=== PATIENT | female | born 1935 | race Caucasian/White ===

== ENCOUNTER 2016-12-26 19:17 | Emergency (ER) | payer MEDICARE ==
[2016-12-26 21:58] LABS: HEMOGLOBIN 12.2 gm/dl (12.3-15.3); RED BLOOD COUNT 4.46 M/UL (4.00-5.10); WHITE BLOOD COUNT 8.1 K/UL (4.5-11.0)
[2016-12-26 22:18] LABS: BUN/CREATININE RATIO 26 (0-10)
== END 2016-12-27 00:20 | disposition home or self-care (01) ==
LOC: ER1 19:17
PROVIDERS: Emergency Medicine
DX: M54.2 Cervicalgia (principal); J18.9 Pneumonia, unspecified organism; J44.9 Chronic obstructive pulmonary disease, unspecified; F17.200 Nicotine dependence, unspecified, uncomplicated; M54.12 Radiculopathy, cervical region
CPT/HCPCS: 36415; 71020; 72125; 80053; 83690; 84484; 85025; 85610; 85730; 93005; 99284

== ENCOUNTER 2021-02-02 18:22 | Inpatient (IN) | payer MEDICARE, MEDICAID ==
[~2021-02-02] VITALS: Ht 162.6 cm; Wt 51.3 kg
[2021-02-02 19:13] LABS: HEMOGLOBIN 12.3 gm/dl (12.3-15.3); RED BLOOD COUNT 4.4 M/UL (4.00-5.10); WHITE BLOOD COUNT 26.5 K/UL (4.5-11.0)
[2021-02-02 19:38] LABS: BUN/CREATININE RATIO 27 (0-10)
[2021-02-03] MEDS ORDERED: VENTOLIN HFA 66.7 GM INH ×2 (00:46→00:47)
[2021-02-03 03:09] LABS: HEMOGLOBIN 10.9 gm/dl (12.3-15.3); RED BLOOD COUNT 3.97 M/UL (4.00-5.10); WHITE BLOOD COUNT 16.8 K/UL (4.5-11.0)
[2021-02-03 03:48] LABS: BUN/CREATININE RATIO 27 (0-10)
[2021-02-04 04:53] LABS: HEMOGLOBIN 9.3 gm/dl (12.3-15.3)
[2021-02-04 05:01] LABS: RED BLOOD COUNT 3.46 M/UL (4.00-5.10)
[2021-02-04 05:05] LABS: BUN/CREATININE RATIO 21 (0-10)
[2021-02-05 03:01] LABS: RED BLOOD COUNT 3.3 M/UL (4.00-5.10); WHITE BLOOD COUNT 11.9 K/UL (4.5-11.0)
[2021-02-05 03:29] LABS: BUN/CREATININE RATIO 21 (0-10)
[2021-02-06 04:56] LABS: HEMOGLOBIN 8.9 gm/dl (12.3-15.3); RED BLOOD COUNT 3.25 M/UL (4.00-5.10)
[2021-02-06 05:00] LABS: WHITE BLOOD COUNT 8.7 K/UL (4.5-11.0)
[2021-02-06 05:20] LABS: BUN/CREATININE RATIO 19 (0-10)
[2021-02-07 02:44] LABS: HEMOGLOBIN 8.9 gm/dl (12.3-15.3); RED BLOOD COUNT 3.19 M/UL (4.00-5.10); WHITE BLOOD COUNT 9.4 K/UL (4.5-11.0)
[2021-02-07 03:09] LABS: BUN/CREATININE RATIO 25 (0-10)
[2021-02-08 04:17] LABS: HEMOGLOBIN 8.4 gm/dl (12.3-15.3); RED BLOOD COUNT 3.04 M/UL (4.00-5.10)
[2021-02-08 04:19] LABS: WHITE BLOOD COUNT 5.7 K/UL (4.5-11.0)
[2021-02-08 04:43] LABS: BUN/CREATININE RATIO 18 (0-10)
[2021-02-08] MEDS ORDERED: IPRAT-ALBUT 0.5-3 ML NEB (09:38)
[2021-02-08] MEDS ORDERED: AUGMENTIN 875-1 EACH PO (09:38)
[2021-02-08] MEDS ORDERED: ASPIRIN EC81 MG PO (09:38)
[2021-02-08] MEDS ORDERED: NEBULIZER UNIT INH (10:41)
--- NOTE | 2021-02-08 10:44 | NUR ---
INSTRUCTED PATIENT ON NEB TREATMENTS, MEDS AND NEB MACHINE E-SCRIPTED TO PHARMACY. TAKE ALL MEDS UNTIL COMPLETED. PROPER TECHNIQUE FOR SLING MAINTENANCE TO PREVENT ARM SWELLING. REFUSED HOME HEALTH. JELANI WILLARD SPEAKING WITH SON TO EXPLAIN MOTHERS DECISION. TO VERIFY UNDERSTANDING. LIVE DAILEY R.N.
== END 2021-02-08 14:20 | disposition home health service (06) | DRG 177 ==
LOC: ER1 18:22 → M/S 21:30 → CDU 21:30 → M/S 22:35
PROVIDERS: Internal Medicine; Physician Assistant; Preventive Medicine Occupational Medicine; ADMIT Internal Medicine
DX: J69.0 Pneumonitis due to inhalation of food and vomit (principal); G93.41 Metabolic encephalopathy; J96.01 Acute respiratory failure with hypoxia; S42.201A Unspecified fracture of upper end of right humerus, initial encounter for closed fracture; J44.0 Chronic obstructive pulmonary disease with (acute) lower respiratory infection; E11.65 Type 2 diabetes mellitus with hyperglycemia; Z20.822 Contact with and (suspected) exposure to COVID-19; E86.0 Dehydration; W19.XXXA Unspecified fall, initial encounter; D72.819 Decreased white blood cell count, unspecified; Z79.899 Other long term (current) drug therapy; Z79.82 Long term (current) use of aspirin; Z87.891 Personal history of nicotine dependence
CPT/HCPCS: ECHO; 0240U; 36415; 36600; 51702; 70450; 70486; 70490; 71045; 73060; 80048; 80053; 80307; 81001; 82009; 82140; 82550; 82553; 82803; 82962; 83036; 83605; 83690; 83874; 83880; 84484; 85025; 85610; 85652; 85730; 86140; 87040; 87086; 92610; 93005; 93306; 94640; 94664; 94760; 96374; 96375; 97116; 97116-GP-CQ; 97161; 99285; A6212; G0480; J0696; J1650; J2543; J7030

== ENCOUNTER → 2021-02-15 | Outpatient (CLI) | payer MEDICARE ==
[~2021-02-15] MED LIST: ASPIRIN EC81 MG PO; AUGMENTIN 875-1 EACH PO; IPRAT-ALBUT 0.5-3 ML NEB; NEBULIZER UNIT INH; VENTOLIN HFA 66.7 GM INH
[2021-02-15 18:31] LABS: HEMOGLOBIN 10.5 gm/dl (12.3-15.3); RED BLOOD COUNT 3.87 M/UL (4.00-5.10); WHITE BLOOD COUNT 11.9 K/UL (4.5-11.0)
[2021-02-15 19:28] LABS: BUN/CREATININE RATIO 37 (0-10)
== END ==
LOC: LAB 17:18
PROVIDERS: Nurse Practitioner Family
DX: J43.9 Emphysema, unspecified (principal); D64.9 Anemia, unspecified; R91.8 Other nonspecific abnormal finding of lung field
CPT/HCPCS: 71046; 80053; 82272; 82728; 83540; 83550; 83615; 84466; 85025; 85045

== ENCOUNTER 2021-05-13 15:42 | Inpatient (IN) | payer MEDICARE, MEDICAID ==
[~2021-05-13] VITALS: Ht 152.4 cm; Wt 54.4 kg
[2021-05-13 16:31] LABS: BUN/CREATININE RATIO 25 (0-10)
[2021-05-13 16:39] LABS: HEMOGLOBIN 13.1 gm/dl (12.3-15.3); RED BLOOD COUNT 4.92 M/UL (4.00-5.10); WHITE BLOOD COUNT 13.9 K/UL (4.5-11.0)
[2021-05-14 03:31] LABS: HEMOGLOBIN 12.8 gm/dl (12.3-15.3); RED BLOOD COUNT 4.73 M/UL (4.00-5.10); WHITE BLOOD COUNT 9.4 K/UL (4.5-11.0)
[2021-05-14 03:54] LABS: BUN/CREATININE RATIO 25 (0-10)
[2021-05-15 08:57] LABS: HEMOGLOBIN 12.1 gm/dl (12.3-15.3); RED BLOOD COUNT 4.56 M/UL (4.00-5.10); WHITE BLOOD COUNT 9.8 K/UL (4.5-11.0)
[2021-05-15 09:10] LABS: BUN/CREATININE RATIO 30 (0-10)
[2021-05-16 06:52] LABS: HEMOGLOBIN 12.1 gm/dl (12.3-15.3); RED BLOOD COUNT 4.56 M/UL (4.00-5.10)
[2021-05-16 07:01] LABS: WHITE BLOOD COUNT 4.6 K/UL (4.5-11.0)
[2021-05-16 07:11] LABS: BUN/CREATININE RATIO 29 (0-10)
[2021-05-17 10:05] LABS: HEMOGLOBIN 12.2 gm/dl (12.3-15.3); RED BLOOD COUNT 4.59 M/UL (4.00-5.10); WHITE BLOOD COUNT 5.6 K/UL (4.5-11.0)
[2021-05-17 10:24] LABS: BUN/CREATININE RATIO 33 (0-10)
[2021-05-19 02:48] LABS: HEMOGLOBIN 12.7 gm/dl (12.3-15.3); RED BLOOD COUNT 4.62 M/UL (4.00-5.10); WHITE BLOOD COUNT 6.7 K/UL (4.5-11.0)
[2021-05-19 03:29] LABS: BUN/CREATININE RATIO 30 (0-10)
[2021-05-22 06:42] LABS: HEMOGLOBIN 12.3 gm/dl (12.3-15.3); RED BLOOD COUNT 4.52 M/UL (4.00-5.10); WHITE BLOOD COUNT 6.9 K/UL (4.5-11.0)
[2021-05-22 07:00] LABS: BUN/CREATININE RATIO 23 (0-10)
[2021-05-22] MEDS ORDERED: SYMBICORT 160-1 INHA INH (14:03)
[2021-05-22] MEDS ORDERED: THERAGRAN M TAB1 EA PO (14:03)
[2021-05-22] MEDS ORDERED: NORVASC5 MG PO (14:03)
[2021-05-22] MEDS ORDERED: LOPRESSOR 25 MG25 MG PO (14:14)
--- NOTE | 2021-05-22 16:08 | NUR ---
Patient O2 saturation dropped to low and mid 80's prior to discharge. Assessment revealed that her 02 cannula and cords were improperly placed. After evaluation with pulse ox, after 02 was placed correctly and adjusted to the approrpriate 3L, the patient's O2 Sat returned to the mid 90's. Discharge then proceeded as normal. Dr. Espino was made aware.
== END 2021-05-22 16:28 | disposition home health service (06) | DRG 177 ==
LOC: ER1 15:42 → MED SURG 4 17:48 → CDU 17:48 → MED SURG 4 05-15 01:00
PROVIDERS: Internal Medicine Infectious Disease; Physician Assistant; ADMIT Internal Medicine
PROC: XW033E5 Introduction of Remdesivir Anti-infective into Peripheral Vein, Percutaneous Approach, New Technology Group 5 (ICD-10-PCS; principal; 2021-05-13)
PROC: 3E0333Z Introduction of Anti-inflammatory into Peripheral Vein, Percutaneous Approach (ICD-10-PCS; 2021-05-13)
PROC: 8E0ZXY6 Isolation (ICD-10-PCS; 2021-05-14)
DX: U07.1 COVID-19 (principal); J12.82 Pneumonia due to coronavirus disease 2019; J96.01 Acute respiratory failure with hypoxia; J44.1 Chronic obstructive pulmonary disease with (acute) exacerbation; J44.0 Chronic obstructive pulmonary disease with (acute) lower respiratory infection; F03.90 Unspecified dementia, unspecified severity, without behavioral disturbance, psychotic disturbance, mood disturbance, and anxiety; I16.0 Hypertensive urgency; E87.6 Hypokalemia; R53.81 Other malaise; Z99.81 Dependence on supplemental oxygen; Z87.891 Personal history of nicotine dependence
CPT/HCPCS: 36415; 36600; 71045; 80048; 80053; 82550; 82553; 82803; 83735; 83874; 83880; 84484; 85025; 86140; 93005; 94640; 94664; 94760; 96374; 96375; 97110-GP-CQ; 97116-GP-CQ; 97162; 97166; 99285; A6212; J0456; J0696; J1100; J1650; J7030; U0002

== ENCOUNTER 2021-07-08 13:12 | Inpatient (IN) | payer MEDICARE, MEDICAID ==
[~2021-07-08] VITALS: Ht 160 cm; Wt 39.0 kg
[~2021-07-08 13:12] MED LIST changes: +LOPRESSOR 25 MG25 MG PO; +NORVASC5 MG PO; +PROAIR DIGIHAL90 MCG INH; +SYMBICORT 160-1 INHA INH; +THERAGRAN M TAB1 EA PO
[2021-07-08 14:18] LABS: RED BLOOD COUNT 3.83 M/UL (4.00-5.10); WHITE BLOOD COUNT 12.5 K/UL (4.5-11.0)
[2021-07-08 14:50] LABS: BUN/CREATININE RATIO 32 (0-10)
[2021-07-08] MEDS ORDERED: DAILY VALUE1 EACH PO (18:26)
[2021-07-08] MEDS ORDERED: TRELEGY ELLIPT1 EACH INH (18:28)
[2021-07-09 08:04] LABS: RED BLOOD COUNT 3.69 M/UL (4.00-5.10); WHITE BLOOD COUNT 9.5 K/UL (4.5-11.0)
[2021-07-09 08:30] LABS: BUN/CREATININE RATIO 17 (0-10)
[2021-07-09 12:46] LABS: HEMOGLOBIN 10.4 gm/dl (12.3-15.3); RED BLOOD COUNT 3.71 M/UL (4.00-5.10)
[2021-07-09 12:53] LABS: BUN/CREATININE RATIO 22 (0-10)
--- NOTE | 2021-07-10 16:27 | NUR ---
Spoke with patient concerning PICC line placement. Pt refusing at this time. Pt states that she wants to speak to her son about the PICC. BUNNY Nolasco updated on conversation with pt. Will f/u on 07/11/21.
--- NOTE | 2021-07-11 04:05 | NUR ---
0340 CHANGED PATIENTS DRESSING, APPLIED NEW ALLEVYN DRESSINGS TO HER MID THORACIC AREA AND COCCYX. PATIENT TOLERATED WELL.
[2021-07-11 06:44] LABS: HEMOGLOBIN 9.1 gm/dl (12.3-15.3)
[2021-07-11 06:48] LABS: RED BLOOD COUNT 3.27 M/UL (4.00-5.10); WHITE BLOOD COUNT 7.4 K/UL (4.5-11.0)
[2021-07-11 07:12] LABS: BUN/CREATININE RATIO 13 (0-10)
--- NOTE | 2021-07-13 16:31 | NUR ---
20G X 10CM MIDLINE PLACED IN THE RIGHT BASILIC VEIN, USING US GUIDANCE. ASPIRATES AND FLUSHES.
--- NOTE | 2021-07-13 17:19 | NUR ---
PATIENT HAD A MIDLINE PLACED IN RIGHT BACILLUS. 20 GAUGE X 10CM.
[2021-07-14 06:53] LABS: HEMOGLOBIN 9.1 gm/dl (12.3-15.3); RED BLOOD COUNT 3.26 M/UL (4.00-5.10); WHITE BLOOD COUNT 6.4 K/UL (4.5-11.0)
[2021-07-14 07:34] LABS: BUN/CREATININE RATIO 16 (0-10)
[2021-07-14] MEDS ORDERED: NORVASC10 MG PO (09:24)
[2021-07-14] MEDS ORDERED: INVANZ 1 GM VIAL1 GM IV (09:24)
== END 2021-07-14 17:54 | disposition home health service (06) | DRG 539 ==
LOC: ER1 13:12 → M/S 16:21 → CDU 16:21 → M/S 17:28
PROVIDERS: Internal Medicine Infectious Disease; Physician Assistant; ADMIT Internal Medicine
DX: M46.28 Osteomyelitis of vertebra, sacral and sacrococcygeal region (principal); L89.154 Pressure ulcer of sacral region, stage 4; E43 Unspecified severe protein-calorie malnutrition; J96.11 Chronic respiratory failure with hypoxia; Z68.1 Body mass index [BMI] 19.9 or less, adult; R64 Cachexia; L03.818 Cellulitis of other sites; R53.83 Other fatigue; L89.102 Pressure ulcer of unspecified part of back, stage 2; J44.9 Chronic obstructive pulmonary disease, unspecified; I10 Essential (primary) hypertension; Z86.16 Personal history of COVID-19; Z79.899 Other long term (current) drug therapy; Z79.52 Long term (current) use of systemic steroids; Z87.891 Personal history of nicotine dependence
CPT/HCPCS: 36415; 71045; 72192; 80048; 80053; 80202; 81001; 82550; 82553; 83605; 83874; 84484; 85025; 85652; 86140; 87040; 87070; 87077; 87086; 87186; 87205; 94640; 94664; 94760; 96374; 96375; 97110-GP-CQ; 97116-GP-CQ; 97161; 97530; 99284; A6212; C1751; J1335; J1650; J1756; J2543; J3370; J7050; U0002

== ENCOUNTER → 2021-07-15 | Outpatient (CLI) | payer MEDICARE ==
[~2021-07-15] VITALS: Ht 162.6 cm; Wt 39.0 kg
[~2021-07-15] MED LIST changes: +DAILY VALUE1 EACH PO; +INVANZ 1 GM VIAL1 GM IV; +NORVASC10 MG PO; +TRELEGY ELLIPT1 EACH INH
== END ==
LOC: LAB 06:57
DX: M86.9 Osteomyelitis, unspecified (principal)
CPT/HCPCS: 96365; J1335

== ENCOUNTER → 2021-07-16 | Outpatient (CLI) | payer MEDICARE ==
[~2021-07-16] VITALS: Ht 162.6 cm; Wt 86.0 kg
== END ==
LOC: OPSV 06:40
DX: M86.9 Osteomyelitis, unspecified (principal)
CPT/HCPCS: 96365; J1335

== ENCOUNTER → 2021-07-17 | Outpatient (CLI) | payer MEDICARE | LOC: OPSV 07:00 | DX: M86.9 Osteomyelitis, unspecified (principal) | CPT/HCPCS: 96365; J1335 ==

== ENCOUNTER → 2021-07-18 | Outpatient (CLI) | payer MEDICARE ==
[~2021-07-18] VITALS: Ht 152.4 cm; Wt 55.8 kg
== END ==
LOC: OPSV 09:00
DX: M86.9 Osteomyelitis, unspecified (principal)
CPT/HCPCS: 96365; J1335

== ENCOUNTER → 2021-07-19 | Outpatient (CLI) | payer MEDICARE | LOC: OPSV 08:53 | DX: M86.9 Osteomyelitis, unspecified (principal) | CPT/HCPCS: 96365; J1335 ==

== ENCOUNTER → 2021-07-20 | Outpatient (CLI) | payer MEDICARE ==
[~2021-07-20] VITALS: Ht 162.6 cm; Wt 39.0 kg
== END ==
LOC: OPSV 08:32
DX: M86.9 Osteomyelitis, unspecified (principal)
CPT/HCPCS: 96365; J1335

== ENCOUNTER → 2021-07-21 | Outpatient (CLI) | payer MEDICARE ==
[~2021-07-21] VITALS: Ht 162.6 cm; Wt 39.0 kg
== END ==
LOC: OPSV 08:25
DX: M86.9 Osteomyelitis, unspecified (principal)
CPT/HCPCS: 96365; J1335

== ENCOUNTER → 2021-07-22 | Outpatient (CLI) | payer MEDICARE | LOC: OPSV 06:33 | DX: M86.9 Osteomyelitis, unspecified (principal) | CPT/HCPCS: 96365; J1335 ==

== ENCOUNTER → 2021-07-23 | Outpatient (CLI) | payer MEDICARE | LOC: OPSV 06:40 | DX: M86.9 Osteomyelitis, unspecified (principal) | CPT/HCPCS: 96365; J1335 ==

== ENCOUNTER → 2021-07-24 | Outpatient (CLI) | payer MEDICARE ==
[~2021-07-24] VITALS: Ht 162.6 cm; Wt 39.0 kg
== END ==
LOC: OPSV 08:43
DX: M86.9 Osteomyelitis, unspecified (principal)
CPT/HCPCS: 96365; J1335

== ENCOUNTER → 2021-07-25 | Outpatient (CLI) | payer MEDICARE ==
[~2021-07-25] VITALS: Ht 162.6 cm; Wt 39.0 kg
== END ==
LOC: OPSV 08:16
DX: M86.9 Osteomyelitis, unspecified (principal)
CPT/HCPCS: 96365; J1335

== ENCOUNTER → 2021-07-26 | Outpatient (CLI) | payer MEDICARE ==
[~2021-07-26] VITALS: Ht 162.6 cm; Wt 39.0 kg
== END ==
LOC: OPSV 08:18
DX: M86.9 Osteomyelitis, unspecified (principal)
CPT/HCPCS: 96365; J1335

== ENCOUNTER → 2021-07-27 | Outpatient (CLI) | payer MEDICARE ==
[~2021-07-27] VITALS: Ht 162.6 cm; Wt 39.0 kg
== END ==
LOC: OPSV 06:36
DX: M86.9 Osteomyelitis, unspecified (principal)
CPT/HCPCS: 96365; J1335

== ENCOUNTER → 2021-07-28 | Outpatient (CLI) | payer MEDICARE ==
[~2021-07-28] VITALS: Ht 162.6 cm; Wt 39.0 kg
== END ==
LOC: OPSV 06:34
DX: M86.9 Osteomyelitis, unspecified (principal)
CPT/HCPCS: 96365; J1335

== ENCOUNTER → 2021-07-29 | Outpatient (CLI) | payer MEDICARE ==
[~2021-07-29] VITALS: Ht 162.6 cm; Wt 39.0 kg
== END ==
LOC: OPSV 06:35
DX: M86.9 Osteomyelitis, unspecified (principal)
CPT/HCPCS: 96365; J1335

== ENCOUNTER → 2021-07-30 | Outpatient (CLI) | payer MEDICARE | LOC: OPSV 06:36 | DX: M86.9 Osteomyelitis, unspecified (principal) | CPT/HCPCS: 96365; J1335 ==

== ENCOUNTER → 2021-07-31 | Outpatient (CLI) | payer MEDICARE ==
[~2021-07-31] VITALS: Ht 162.6 cm; Wt 39.0 kg
== END ==
LOC: OPSV 08:36
DX: M86.9 Osteomyelitis, unspecified (principal)
CPT/HCPCS: 96365; J1335

== ENCOUNTER → 2021-08-01 | Outpatient (CLI) | payer MEDICARE ==
[~2021-08-01] VITALS: Ht 162.6 cm; Wt 39.0 kg
== END ==
LOC: OPSV 06:33
DX: M86.9 Osteomyelitis, unspecified (principal)
CPT/HCPCS: 96365; J1335

== ENCOUNTER → 2021-08-02 | Outpatient (CLI) | payer MEDICARE ==
[~2021-08-02] VITALS: Ht 162.6 cm; Wt 39.0 kg
== END ==
LOC: OPSV 08:14
DX: M86.9 Osteomyelitis, unspecified (principal)
CPT/HCPCS: 96365; J1335

== ENCOUNTER → 2021-08-03 | Outpatient (CLI) | payer MEDICARE ==
[~2021-08-03] VITALS: Ht 162.6 cm; Wt 86.0 kg
== END ==
LOC: OPSV 08:31
DX: M86.9 Osteomyelitis, unspecified (principal)
CPT/HCPCS: 96365; J1335

== ENCOUNTER → 2021-08-04 | Outpatient (CLI) | payer MEDICARE ==
[~2021-08-04] VITALS: Ht 162.6 cm; Wt 39.0 kg
== END ==
LOC: OPSV 08:30
DX: M86.9 Osteomyelitis, unspecified (principal)
CPT/HCPCS: 96365; J1335

== ENCOUNTER 2022-03-20 10:15 | Inpatient (IN) | payer MEDICARE ==
[~2022-03-20] VITALS: Ht 167.6 cm; Wt 46.3 kg
[2022-03-20 10:42] LABS: HEMOGLOBIN 9.7 gm/dl (12.3-15.3); RED BLOOD COUNT 3.44 M/UL (4.00-5.10); WHITE BLOOD COUNT 5.5 K/UL (4.5-11.0)
[2022-03-20 11:01] LABS: BUN/CREATININE RATIO 38 (0-10)
[2022-03-20] MEDS ORDERED: ERYTHROMYCIN O3.5 GM OS (16:40)
[2022-03-20] MEDS ORDERED: IBU800 MG PO (16:42)
[2022-03-20] MEDS ORDERED: AMLODIPINE BESYL5 MG PO (16:44)
[2022-03-20] MEDS ORDERED: CLONIDINE HCL0.1 MG PO (16:46)
[2022-03-20] MEDS ORDERED: METOPROLOL TART25 MG PO (16:46)
[2022-03-20] MEDS ORDERED: ALBUTEROL2.5 MG/3 M INH (16:51)
[2022-03-21 02:32] LABS: HEMOGLOBIN 9.4 gm/dl (12.3-15.3); RED BLOOD COUNT 3.41 M/UL (4.00-5.10); WHITE BLOOD COUNT 5.1 K/UL (4.5-11.0)
[2022-03-21 04:16] LABS: BUN/CREATININE RATIO 29 (0-10)
--- NOTE | 2022-03-21 18:35 | NUR ---
SPOKE TO PT'S SON TODAY WHO HELPS IN HER CARE AT HOME. PT'S SON REPORTS THAT THE PT WEARS OXYGEN AT HOME 2-3L NC BUT CAN GO WITHOUT OXYGEN GENERALLY TO THE DOCTOR WITHOUT ANY PROBLEMS. PT STARTED GETTING MORE SOA A COUPLE OF WEEKS AGO BEFORE HE NOTICED THAT SHE WAS GETTING MORE SOA. WILL CONTINUE TO MONITOR PT AND HER OXYGEN.
--- NOTE | 2022-03-21 18:43 | NUR ---
ADVISED PT THAT THE MEDICATION REMDESIVIR THAT IS USED FOR COVID IS CONSIDERED EXPERIMENTAL AND NO USP SIDE EFFECTS ARE KNOWN AT THIS TIME. THIS MEDICATION IS EMERGENCY USE. PT STATED THAT SHE WOULD LIKE THE MEDICATION BECAUSE THIS IS WHAT HER DOCTOR ORDERED AND WILL TAKE THE MEDICATION. MEDICATION ADMINISTERED FOR THE PT.
[2022-03-22 04:21] LABS: HEMOGLOBIN 9.9 gm/dl (12.3-15.3); RED BLOOD COUNT 3.54 M/UL (4.00-5.10)
[2022-03-22 04:31] LABS: WHITE BLOOD COUNT 8.1 K/UL (4.5-11.0)
[2022-03-22 04:54] LABS: BUN/CREATININE RATIO 38 (0-10)
[2022-03-23 04:19] LABS: HEMOGLOBIN 9.9 gm/dl (12.3-15.3); RED BLOOD COUNT 3.48 M/UL (4.00-5.10); WHITE BLOOD COUNT 7.5 K/UL (4.5-11.0)
[2022-03-23 05:37] LABS: BUN/CREATININE RATIO 53 (0-10)
[2022-03-23 13:14] LABS: ORGANISM ID Not indicated. (.); SPECIMEN SOURCE Urine (.); STREPTOCOCCUS PNEUMONIAE AG Negative (Negative)
[2022-03-24 03:18] LABS: BUN/CREATININE RATIO 48 (0-10)
[2022-03-24 03:43] LABS: HEMOGLOBIN 9.6 gm/dl (12.3-15.3); RED BLOOD COUNT 3.4 M/UL (4.00-5.10); WHITE BLOOD COUNT 5.9 K/UL (4.5-11.0)
[2022-03-25 05:24] LABS: HEMOGLOBIN 10.7 gm/dl (12.3-15.3); WHITE BLOOD COUNT 5.6 K/UL (4.5-11.0)
[2022-03-25 05:26] LABS: RED BLOOD COUNT 3.8 M/UL (4.00-5.10)
[2022-03-25 05:50] LABS: BUN/CREATININE RATIO 60 (0-10)
[2022-03-26 04:49] LABS: BUN/CREATININE RATIO 65 (0-10)
[2022-03-26 05:14] LABS: HEMOGLOBIN 11.5 gm/dl (12.3-15.3); RED BLOOD COUNT 4.1 M/UL (4.00-5.10); WHITE BLOOD COUNT 5.1 K/UL (4.5-11.0)
[2022-03-27 03:39] LABS: HEMOGLOBIN 11.2 gm/dl (12.3-15.3); RED BLOOD COUNT 4.03 M/UL (4.00-5.10); WHITE BLOOD COUNT 5.9 K/UL (4.5-11.0)
[2022-03-27 04:28] LABS: BUN/CREATININE RATIO 65 (0-10)
[2022-03-28 03:23] LABS: HEMOGLOBIN 11.4 gm/dl (12.3-15.3); RED BLOOD COUNT 4.1 M/UL (4.00-5.10)
[2022-03-28 03:26] LABS: WHITE BLOOD COUNT 4.4 K/UL (4.5-11.0)
[2022-03-28 03:42] LABS: BUN/CREATININE RATIO 73 (0-10)
[2022-03-29 06:21] LABS: HEMOGLOBIN 12.2 gm/dl (12.3-15.3)
[2022-03-29 06:37] LABS: BUN/CREATININE RATIO 86 (0-10)
[2022-03-29 06:45] LABS: RED BLOOD COUNT 4.55 M/UL (4.00-5.10); WHITE BLOOD COUNT 5.7 K/UL (4.5-11.0)
[2022-03-29] MEDS ORDERED: LOSARTAN POTAS100 MG PO (13:16)
[2022-03-29] MEDS ORDERED: COREG25 MG PO (13:16)
[2022-03-29] MEDS ORDERED: ASPIRIN EC81 MG PO (13:16)
[2022-03-29] MEDS ORDERED: MEROPENEM1 GM IV (13:16)
--- NOTE | 2022-03-29 15:28 | NUR ---
REPORT CALLED TO [facility].
== END 2022-03-29 17:15 | disposition home health service (06) | DRG 177 ==
LOC: ER1 10:15 → CDU 14:44 → M/S 16:10
PROVIDERS: Emergency Medicine; Internal Medicine; ADMIT Internal Medicine
PROC: 8E0ZXY6 Isolation (ICD-10-PCS; principal; 2022-03-20)
PROC: XW033E5 Introduction of Remdesivir Anti-infective into Peripheral Vein, Percutaneous Approach, New Technology Group 5 (ICD-10-PCS; 2022-03-20)
PROC: 3E0333Z Introduction of Anti-inflammatory into Peripheral Vein, Percutaneous Approach (ICD-10-PCS; 2022-03-26)
DX: U07.1 COVID-19 (principal); J12.82 Pneumonia due to coronavirus disease 2019; L89.324 Pressure ulcer of left buttock, stage 4; L89.314 Pressure ulcer of right buttock, stage 4; J15.1 Pneumonia due to Pseudomonas; J80 Acute respiratory distress syndrome; J44.0 Chronic obstructive pulmonary disease with (acute) lower respiratory infection; E87.1 Hypo-osmolality and hyponatremia; Z68.1 Body mass index [BMI] 19.9 or less, adult; J91.8 Pleural effusion in other conditions classified elsewhere; R63.6 Underweight; R53.81 Other malaise; D50.9 Iron deficiency anemia, unspecified; I10 Essential (primary) hypertension; D69.6 Thrombocytopenia, unspecified; Z74.01 Bed confinement status; Z99.81 Dependence on supplemental oxygen; Z79.01 Long term (current) use of anticoagulants; Z79.82 Long term (current) use of aspirin; Z88.8 Allergy status to other drugs, medicaments and biological substances; Z87.01 Personal history of pneumonia (recurrent); Z82.49 Family history of ischemic heart disease and other diseases of the circulatory system
CPT/HCPCS: 36415; 36600; 70450; 71045; 71250; 80048; 80053; 80202; 81001; 82550; 82553; 82803; 82962; 83036; 83540; 83550; 83605; 83735; 83880; 84100; 84484; 85025; 85027; 85610; 85652; 85730; 86140; 87040; 87070; 87077; 87081; 87086; 87186; 87205; 87278; 87899; 93005; 94640; 94664; 94667; 94668; 94760; 97161; 97530; 97530-GP-CQ; 99285; A6212; C1751; J0248; J1100; J1650; J2185; J2543; J3370; J7030; J7070; U0002

== ENCOUNTER 2022-04-10 04:00 | Inpatient (IN) | payer MEDICARE ==
[~2022-04-10] VITALS: Ht 167.6 cm; Wt 55.5 kg
[~2022-04-10 04:00] MED LIST changes: +ALBUTEROL2.5 MG/3 M INH; +AMLODIPINE BESYL5 MG PO; +CLONIDINE HCL0.1 MG PO; +COREG25 MG PO; +ERYTHROMYCIN O3.5 GM OS; +IBU800 MG PO; +LOSARTAN POTAS100 MG PO; +MEROPENEM1 GM IV; +METOPROLOL TART25 MG PO
[2022-04-10 04:45] LABS: HEMOGLOBIN 7.4 gm/dl (12.3-15.3); RED BLOOD COUNT 2.62 M/UL (4.00-5.10)
[2022-04-10 05:12] LABS: BUN/CREATININE RATIO 57 (0-10)
[2022-04-10] MEDS ORDERED: ASPIRIN EC81 MG PO (08:56)
[2022-04-10] MEDS ORDERED: LOSARTAN POTAS100 MG PO (08:56)
[2022-04-10] MEDS ORDERED: CARVEDILOL25 MG PO (08:56)
[2022-04-11 06:09] LABS: BUN/CREATININE RATIO 65 (0-10)
[2022-04-11 06:57] LABS: HEMOGLOBIN 7.2 gm/dl (12.3-15.3); RED BLOOD COUNT 2.57 M/UL (4.00-5.10)
[2022-04-11 07:34] LABS: WHITE BLOOD COUNT 5.7 K/UL (4.5-11.0)
[2022-04-11 09:24] LABS: BUN/CREATININE RATIO 60 (0-10)
[2022-04-12 05:16] LABS: RED BLOOD COUNT 2.33 M/UL (4.00-5.10); WHITE BLOOD COUNT 5.3 K/UL (4.5-11.0)
[2022-04-12 05:41] LABS: BUN/CREATININE RATIO 60 (0-10)
[2022-04-12 05:47] LABS: HEMOGLOBIN 6.2 gm/dl (12.3-15.3)
[2022-04-12 15:19] LABS: HEMOGLOBIN 8.3 gm/dl (12.3-15.3)
[2022-04-13 04:17] LABS: RED BLOOD COUNT 2.86 M/UL (4.00-5.10); WHITE BLOOD COUNT 7.5 K/UL (4.5-11.0)
[2022-04-13 04:45] LABS: BUN/CREATININE RATIO 85 (0-10)
[2022-04-14 04:33] LABS: HEMOGLOBIN 9.5 gm/dl (12.3-15.3); WHITE BLOOD COUNT 8.1 K/UL (4.5-11.0)
[2022-04-14 04:35] LABS: RED BLOOD COUNT 3.48 M/UL (4.00-5.10)
[2022-04-14 05:05] LABS: BUN/CREATININE RATIO 86 (0-10)
[2022-04-15 05:19] LABS: HEMOGLOBIN 9.9 gm/dl (12.3-15.3); RED BLOOD COUNT 3.52 M/UL (4.00-5.10); WHITE BLOOD COUNT 6.5 K/UL (4.5-11.0)
[2022-04-15 06:27] LABS: BUN/CREATININE RATIO 86 (0-10)
[2022-04-16 03:54] LABS: HEMOGLOBIN 10.4 gm/dl (12.3-15.3); RED BLOOD COUNT 3.71 M/UL (4.00-5.10); WHITE BLOOD COUNT 6.6 K/UL (4.5-11.0)
[2022-04-16 04:12] LABS: BUN/CREATININE RATIO 107 (0-10)
[2022-04-17 04:44] LABS: HEMOGLOBIN 10.7 gm/dl (12.3-15.3); RED BLOOD COUNT 3.86 M/UL (4.00-5.10)
[2022-04-17 04:45] LABS: WHITE BLOOD COUNT 14.9 K/UL (4.5-11.0)
[2022-04-17 05:02] LABS: BUN/CREATININE RATIO 100 (0-10)
[2022-04-18 08:40] LABS: RED BLOOD COUNT 3.56 M/UL (4.00-5.10); WHITE BLOOD COUNT 14.6 K/UL (4.5-11.0)
[2022-04-18 09:00] LABS: BUN/CREATININE RATIO 92 (0-10)
--- NOTE | 2022-04-19 04:21 | NUR ---
PATIENT BECAME COMBATIVE AND YELLING. SHE PULLED OUT NG TUBE ON 04/18/22 APPROXIMATELY 2215, DR PETERSON WAS NOTIFIED VIA PHONE AND HE ORDERED FOR NEW NG TUBE TO BE PLACED, PATIENT WAS YELLING, CURSING AND SMACKING AT STAFF. DR. PETERSON WAS NOTIFIED AGAIN AND WAS GIVEN ONE TIME ORDER FOR GEODON 10MG IM. NG TUBE WAS REPLACED BY DELMAR HENRY RN IN THE RIGHT NARE AND SECURED WITH TAPE. STAT ORDER WAS PLACED FOR CHEST XRAY TO CONFIRM NG TUBE PLACEMENT. DR PETERSON WAS NOTIFIED OF CHEST XRAY RESULT VIA PHONE AND HE CONFIRMED IT WAS OKAY AND COULD BE USED. PATIENTS 2100/2200 AND 0000 MEDICATIONS WERE NOT ADMINISTERED DUE TO PATIENT BEING COMBATIVE AND TRYING TO REPLACE NG TUBE. PATIENT CURRENTLY HAS SITTER (MELINDA) AT BEDSIDE.
--- NOTE | 2022-04-19 14:20 | NUR ---
WHILE ROUNDING ON PATIENT AND CHECKING HER TEMPERATURE I NOTICED PATIENT HAD TUBE FEED COMING OUT OF HER RIGHT NOSTRIL. PATIENT PULLED NG TUBE OUT. DR BYRNE NOTIFIED FOR REINSERTION AND/OR CHEST XRAY. PATIENT VITAL SIGNS STABLE. OXYGEN 96% ON 5L NC. DR BYRNE DID NOT WANT NG TUBE REPLACED OR CHEST XRAY. HE WILL SPEAK WITH SON ABOUT MAKING PATIENT COMFORT MEASURES AND NOTIFY OF DECISION. WILL CONTINUE TO MONITOR.
--- NOTE | 2022-04-19 23:55 | NUR ---
LATE ENTRY 04/19/222246 PATIENT FOUND , NO SIGN/SYMPTOMS OF SPONTANEOUS RESPIRATIONS, NO APICAL HEARTBEAT DETECTED WITH AUSCULTATION, 2247 SHABBIR HUGO SON OF NOTIFIED, 2247 [address]ER[address] NOTIFIED PATIENT IS NOT ELIGIBLE AFTER SPEAKING WITH ENIO RAMEY
== END 2022-04-19 23:58 | disposition expired | DRG 870 ==
LOC: ER1 04:00 → CDU 06:00 → CCU 06:00 → MED SURG 4 04-18 12:01
PROVIDERS: Internal Medicine; Internal Medicine Critical Care Medicine; Internal Medicine Pulmonary Disease; Student in an Organized Health Care Education/Training Program; ADMIT Internal Medicine
PROC: 3E043XZ Introduction of Vasopressor into Central Vein, Percutaneous Approach (ICD-10-PCS; 2022-04-10)
PROC: 3E03329 Introduction of Other Anti-infective into Peripheral Vein, Percutaneous Approach (ICD-10-PCS; 2022-04-10)
PROC: 5A09357 Assistance with Respiratory Ventilation, Less than 24 Consecutive Hours, Continuous Positive Airway Pressure (ICD-10-PCS; 2022-04-10)
PROC: 5A09357 Assistance with Respiratory Ventilation, Less than 24 Consecutive Hours, Continuous Positive Airway Pressure (ICD-10-PCS; 2022-04-10)
PROC: 5A1955Z Respiratory Ventilation, Greater than 96 Consecutive Hours (ICD-10-PCS; principal; 2022-04-11)
PROC: 0BH17EZ Insertion of Endotracheal Airway into Trachea, Via Natural or Artificial Opening (ICD-10-PCS; 2022-04-11)
PROC: 5A09357 Assistance with Respiratory Ventilation, Less than 24 Consecutive Hours, Continuous Positive Airway Pressure (ICD-10-PCS; 2022-04-11)
PROC: 02HV33Z Insertion of Infusion Device into Superior Vena Cava, Percutaneous Approach (ICD-10-PCS; 2022-04-11)
PROC: B548ZZA Ultrasonography of Superior Vena Cava, Guidance (ICD-10-PCS; 2022-04-11)
PROC: 30233N1 Transfusion of Nonautologous Red Blood Cells into Peripheral Vein, Percutaneous Approach (ICD-10-PCS; 2022-04-12)
PROC: 0B9M8ZX Drainage of Bilateral Lungs, Via Natural or Artificial Opening Endoscopic, Diagnostic (ICD-10-PCS; 2022-04-12)
PROC: 0B978ZZ Drainage of Left Main Bronchus, Via Natural or Artificial Opening Endoscopic (ICD-10-PCS; 2022-04-12)
PROC: 5A09357 Assistance with Respiratory Ventilation, Less than 24 Consecutive Hours, Continuous Positive Airway Pressure (ICD-10-PCS; 2022-04-16)
PROC: 5A09357 Assistance with Respiratory Ventilation, Less than 24 Consecutive Hours, Continuous Positive Airway Pressure (ICD-10-PCS; 2022-04-16)
PROC: 5A09357 Assistance with Respiratory Ventilation, Less than 24 Consecutive Hours, Continuous Positive Airway Pressure (ICD-10-PCS; 2022-04-17)
PROC: 5A09357 Assistance with Respiratory Ventilation, Less than 24 Consecutive Hours, Continuous Positive Airway Pressure (ICD-10-PCS; 2022-04-18)
PROC: 8E0ZXY6 Isolation (ICD-10-PCS; 2022-04-19)
DX: A41.9 Sepsis, unspecified organism (principal); E43 Unspecified severe protein-calorie malnutrition; I50.33 Acute on chronic diastolic (congestive) heart failure; L89.154 Pressure ulcer of sacral region, stage 4; R65.21 Severe sepsis with septic shock; J96.21 Acute and chronic respiratory failure with hypoxia; J96.22 Acute and chronic respiratory failure with hypercapnia; G93.41 Metabolic encephalopathy; U07.1 COVID-19; J69.0 Pneumonitis due to inhalation of food and vomit; G93.49 Other encephalopathy; D61.818 Other pancytopenia; J44.1 Chronic obstructive pulmonary disease with (acute) exacerbation; J98.11 Atelectasis; N39.0 Urinary tract infection, site not specified; J44.0 Chronic obstructive pulmonary disease with (acute) lower respiratory infection; Z68.1 Body mass index [BMI] 19.9 or less, adult; E78.5 Hyperlipidemia, unspecified; Z66 Do not resuscitate; I16.0 Hypertensive urgency; I11.0 Hypertensive heart disease with heart failure; D64.9 Anemia, unspecified; R13.10 Dysphagia, unspecified; R53.81 Other malaise; Z86.16 Personal history of COVID-19; Z87.01 Personal history of pneumonia (recurrent); Z99.81 Dependence on supplemental oxygen; Z74.01 Bed confinement status; Z87.891 Personal history of nicotine dependence; Z79.01 Long term (current) use of anticoagulants; Z79.82 Long term (current) use of aspirin; Z79.4 Long term (current) use of insulin
CPT/HCPCS: 0240U; 31500; 36415; 36430; 36600; 70450; 71045; 71275; 72125; 72170; 73030; 80048; 80053; 80202; 81001; 82550; 82553; 82607; 82728; 82746; 82803; 83540; 83550; 83605; 83735; 83880; 84484; 85014; 85018; 85025; 85027; 86140; 86850; 86900; 86901; 86920; 87015; 87040; 87070; 87081; 87086; 87116; 87205; 87206; 92526; 92610; 93971; 94002; 94003; 94640; 94660; 94664; 94668; 94760; 96361; 96365; 96375; 97162; 97166; 97530; 99285; A6212; C9113; J0330; J0360; J1650; J1940; J2060; J2185; J2250; J2270; J2405; J2704; J2920; J3360; J3370; J3475; J3486; J7030; J7040; J7070; P9016; P9047; Q9967; U0002